=== PATIENT | male | born 1940 | race Caucasian/White ===

== ENCOUNTER 2017-08-17 11:11 | Emergency (ER) | payer OTHER ==
[2017-08-17] MEDS ORDERED: TETANUS/DIPHTHERIA TOXOID [ADULT] 0.5 ML VIAL IM ONE (11:57)
[2017-08-17] MEDS ORDERED: OCTYL 2-CYANOACRYLATE 1 EACH TP ONE (12:38)
== END 2017-08-17 12:56 | disposition home or self-care (01) ==
LOC: EDH 11:11
DX: S51.811A Laceration without foreign body of right forearm, initial encounter (principal); S51.011A Laceration without foreign body of right elbow, initial encounter; Z85.828 Personal history of other malignant neoplasm of skin; W11.XXXA Fall on and from ladder, initial encounter; Y93.89 Activity, other specified; Y92.69 Other specified industrial and construction area as the place of occurrence of the external cause; Y99.8 Other external cause status
CPT/HCPCS: 12002; 90471; 90714

== ENCOUNTER 2017-08-21 11:50 | Emergency (ER) | payer OTHER ==
[2017-08-21 14:27] LABS: APPEARANCE,URINE Clear (CLEAR); BILIRUBIN,URINE Negative (NEGATIVE); COLOR,URINE Yellow (YELLOW); GLUCOSE, URINE (UA) Negative (NEGATIVE); KETONES,URINE Negative (NEGATIVE); LEUKOCYTE ESTERASE ,URINE Trace (NEGATIVE); NITRATE,URINE Negative (NEGATIVE); OCCULT BLOOD,URINE Negative (NEGATIVE); PROTEIN,URINE Negative (NEGATIVE)
[2017-08-21] MEDS ORDERED: LIDOCAINE 5% TOPICAL PATCH TP ONE (14:33)
[2017-08-21 14:47] LABS: BACTERIA,URINE Rare /HPF (None Seen); RBC,URINE 0-1 /HPF (0-1); SQUAMOUS EPITHELIAL CELL,UR Rare /HPF (0-2)
== END 2017-08-21 15:13 | disposition home or self-care (01) ==
LOC: EDH 11:50
DX: S39.012A Strain of muscle, fascia and tendon of lower back, initial encounter (principal); S09.8XXA Other specified injuries of head, initial encounter; Z98.890 Other specified postprocedural states; W11.XXXA Fall on and from ladder, initial encounter; Y93.89 Activity, other specified; Y92.89 Other specified places as the place of occurrence of the external cause; Y99.8 Other external cause status
CPT/HCPCS: 70450; 72131; 81001

== ENCOUNTER 2024-04-28 14:00 | Emergency (ER) | payer OTHER ==
[~2024-04-28] VITALS: Ht 180.3 cm; Wt 88.5 kg
[~2024-04-28 14:00] MED LIST: METO-296 PO; POLY17PO4 PO
--- NOTE | 2024-04-28 14:07 | ERN ---
ED Note History of Present Illness Stated Complaint: CP, BLURRED VISION X 4 DAYS Chief Complaint: Chest Pain Time Seen by MD: 14:03 Dictation: PATIENT IS A 83-YEAR-OLD MALE HERE WITH INTERMITTENT BLURRED VISION OFF AND ON SINCE SATURDAY. HE STATES IT HAS RESOLVED CURRENTLY HAS HAD AN INTERMITTENT MILD HEADACHE FRONTAL. ADDITIONALLY HE STATES HE HAS A INTERMITTENT CHEST PAIN NO PRESSURE NO REFERRED PAIN NO ARM PAIN NO JAW PAIN NO BACK PAIN. HE STATES HE NEVER WENT TO THE HOSPITAL DURING THIS LAST THREE DAYS NOR DID HE GO SEE HIS PRIMARY CARE DOCTOR TODAY. CURRENTLY STATES HE ONLY HAS ANTERIOR CHEST PAIN. NIH IS 0 SPEECH IS CLEAR Allergies: Coded Allergies: No Known Allergies (Unverified Allergy, Unknown, 07/25/23) Home Meds Active Scripts Metoclopramide HCl (Reglan) 10 Mg Tablet, 10 MG PO QID, #120 TAB 2 Refills Prov:KAYLIN SHEARER Sr., MD 07/25/23 Polyethylene Glycol 3350 (Miralax) 17 Gram Powd.pack, 17 GM PO DAILYBKFST, #30 PACKET 2 Refills Prov:KAYLIN SHEARER Sr., MD 07/25/23 Past Medical History Past Medical History: Asthma, Hypothyroid, Other Additional Past Medical Hx: PROSTATE Surgical History: Other Surgical History Other: BACK SURGERY RN Note Reviewed/Agreed w/PFSH: Yes Review of System Dictation CONSTITUTIONAL: NEGATIVE EXCEPT FOR HPI HEAD/FACE: NEGATIVE EXCEPT FOR HPI EENT: NEGATIVE EXCEPT FOR HPI RESPIRATORY: NEGATIVE EXCEPT FOR HPI CHEST PAIN GASTROINTESTINAL/ABDOMINAL: NEGATIVE EXCEPT FOR HPI GENITOURINARY: NEGATIVE EXCEPT FOR HPI MUSCULOSKELETAL: NEGATIVE EXCEPT FOR HPI INTEGUMENTARY: NEGATIVE EXCEPT FOR HPI NEUROLOGICAL/PSYCH: NEGATIVE EXCEPT FOR HPI INTERMITTENT VISION CHANGES/FRONTAL HEADACHE HEMATOLOGIC/LYMPHATIC: NEGATIVE EXCEPT FOR HPI ALL SYSTEMS NEGATIVE, EXCEPT NOTED ABOVE. 13 POINT REVIEW OF SYSTEMS ASSESSED AND ALL NEGATIVE EXCEPT FOR ABOVE. Initial Vital Sign VS Vital Signs Date Time Temp Pulse Resp B/P (MAP) Pulse Ox O2 Delivery O2 Flow Rate FiO2 04/28/24 14:01 98.1 66 16 141/72 100 Room Air 0 04/28/24 18:33 21 Physical Exam Dictation VITAL SIGNS REVIEWED GENERAL APPEARANCE: ALERT, ORIENTED X 3, NO ACUTE DISTRESS, WELL DEVELOPED, NOURISHED. HEAD AND FACE: NON-TRAUMATIC. EYES: PERRL, PINK CONJUNCTIVAS, EYELID NO TRAUMA, ANTERIOR CHAMBER WITH ARCUS SENILIS. EOMS INTACT EARS: PINNAS INTACT AND NO SIGNS OF TRAUMA OR ERYTHEMA EAR CANALS CLEAR AND NO DISCHARGE TM NO ERYTHEMA NOSE: NO DISCHARGE, NO BLEEDING. OROPHARYNX: MOUTH NORMAL, TONGUE PINK, PHARYNX CLEAR,NO ERYTHEMA, TONSILS NO EXUDATES, NO ABSCESSES NOTED, MUCOUS MEMBRANE MOIST NECK: SUPPLE, NON-TENDER, NO THYROMEGALY, NO MASSES, NO JVD, NO BRUITS BREAST:DEFERRED CHEST:NO TENDERNESS, NO CREPITUS, NO PARADOXICAL MOVEMENT, NO RETRACTIONS LUNGS:CLEAR, WELL-VENTILATED, SYMMETRIC, NO RALES, NO WHEEZING, NO RHONCHI, NO STRIDOR, GOOD BREATH SOUNDS BILATERALLY HEART: REGULAR RATE, REGULAR RHYTHM, NO MURMUR, NO GALLOPS VASCULAR: NO PERIPHERAL EDEMA, ABDOMEN: SOFT, POSITIVE BOWEL SOUNDS, NONDISTENDED, NO GUARDING, NONTENDER, NO REBOUND, NO MASSES NO HEPATOMEGALY, NO SPLENOMEGALY, NO STEVENS'S SIGN, NO HERNIAS. RECTAL: DEFERRED GENITAL: DEFERRED NEUROLOGICAL: NORMAL SPEECH, MOTOR FUNCTION INTACT, SENSORY FUNCTION INTACT NIH IS 0 MUSCULOSKELETAL: NECK NONTENDER, FULL RANGE OF MOTION, BACK NONTENDER, FULL RANGE OF MOTION, EXTREMITIES: NONTENDER, FULL RANGE OF MOTION SKIN: COLOR PINK, DRY, NO TURGOR, NO RASH, NO LACERATIONS, NO ABRASIONS, NO CONTUSIONS. LYMPHATIC: DEFERRED Results (Laboratory/Radiology) Laboratory/Radiology CT HEAD/BRAIN W/O CONTRAST HISTORY: Blurry vision COMPARISON: None TECHNIQUE: Multiple sequential axial images of the head were obtained from the base of the skull through vertex. Patient was not given contrast through intravenous route. FINDINGS: The ventricles and extraventricular CSF spaces are dilated consistent with cerebral atrophy. Nonspecific white matter changes seen. There is no midline shift, mass effect or herniation. No acute intracranial bleed is seen. Visualized portion of the paranasal sinuses are grossly within normal limits. IMPRESSION: 1. No acute intracranial bleed is seen. 2. Atrophy with white matter changes. CHEST 1VW HISTORY: Chest pain COMPARISON: None FINDINGS: A frontal projection of the chest was obtained. Prominent interstitial markings are seen with possible superimposed infiltrates. The heart is borderline enlarged. Degenerative changes are seen. No evidence of aortic calcification is seen. IMPRESSION: 1. Prominent interstitial markings are seen with possible superimposed infiltrates. Labs Reviewed?: Yes EKG Comment: EKG SINUS RHYTHM/HEART RATE 72/LEFT FASCICULAR BLOCK/AXIS NORMAL ED Course ED Course 755 PATIENT REMAINS NEUROLOGICALLY INTACT NO CHEST PAIN AT THIS TIME. DISCHARGED HOME HEART Score Response (Comments) Value EKG: Repolarization changes 1 Age: > 65yrs (+2) 2 Risk Factors: 1-2 risk factors (+1) 1 Initial Troponin: Normal limit (0) 0 Total 4 Medical Decision Making MDM MDM: DIFFERENTIAL DIAGNOSIS: ACS/AMI/CVA/VISION CHANGES/ATYPICAL CHEST PAIN/ELECT ROLYTE IMBALANCE/DEHYDRATION/PNEUMONIA/BRONCHITIS RATIONALE: TESTS CONSIDERED AND ORDERED SECONDARY TO SHARED DECISION MAKING IN CLUDE: EKG/LABS/RADIOLOGY PREVIOUS OUTSIDE RECORDS REVIEWED: OLD ER VISITS. REVIEWED RISK OF COMPLICATION AND/OR MORBIDITY OR MORTALITY OF PATIENT MANAGEMENT: NONE MEDICATIONS-PER MEDICATION RECONCILIATION NEED FOR HOSPITALIZATION: PATIENT DOES NOT MEET CRITERIA FOR HOSPITALIZATION. NO NEED FOR EMERGENCY MAJOR/MINOR SURGERY: NO THERE ARE NO SOCIAL CONCERNS WITH THIS PATIENT. PRESCRIPTION DRUG MANAGEMENT NONE PRESCRIPTIONS WILL INCLUDE SYMPTOMATIC CARE PATIENT'S PRIOR EXTERNAL MEDICAL RECORDS FROM OTHER ER VISITS WERE REVIEWED BY ME INDICATED. PRIOR TESTING AND RESULTS FROM PREVIOUS VISITS WERE REVIEWED. PRIOR TESTS WERE TAKEN INTO ACCOUNT WITH MEDICAL DECISION MAKING AND RESOURCE UTILIZATION, INDEPENDENT HISTORIAN/HISTORIANS WERE USED TO OBTAIN COMPLETE MEDICAL HISTORY. I INDEPENDENTLY INTERPRETED THE TEST THAT WERE PERFORMED, RESULTS WERE REVIEWED BY ME AND CONSIDERED FINDINGS ON RADIOLOGY IF ORDERED. MEDICAL MANAGEMENT AND EXAMINATION INTERPRETATION DISCUSSIONS WERE HAD BY ME WITH OTHER QUALIFIED HEALTHCARE PROFESSIONALS INDICATED FOR THE PATIENT'S CARE. DX & DISP Disposition: Discharge Departure Impression: Primary Impression: Atypical chest pain Additional Impressions: Dizziness, Mild dehydration Condition: Stable Additional Instructions: FOLLOW-UP WITH PRIMARY CARE PROVIDER IN 1 TO 2 DAYS. TAKE MEDICATIONS DIRECTED HERE IN THE EMERGENCY ROOM. OKAY TO CONTINUE HOME MEDICATIONS UNLESS OTHERWISE DISCUSSED DURING YOUR VISIT IN THE EMERGENCY ROOM TODAY. RETURN TO YOUR NEAREST EMERGENCY ROOM IF SYMPTOMS WORSEN OR IF THERE IS NO IMPROVEMENT. CALL 911 IF YOU NEED IMMEDIATE ASSISTANCE. TAKE TYLENOL OR MOTRIN [id number] NEEDED AND IF NO CONTRAINDICATIONS ARE PRESENT. INCREASE ORAL HYDRATION. A WOUND CULTURE OR URINE CULTURE WAS ORDERED HERE IN THE EMERGENCY ROOM DEPARTMENT PLEASE FOLLOW-UP WITH PRIMARY CARE PROVIDER AND ADVISE THEM TO GET REPEAT PORTS FROM OUR FACILITY. IF YOU HAD ANY DIEGO WRAP/SPLINTS THAT WERE APPLIED HERE, PLEASE DO NOT REMOVE THEM UNTIL YOU SEE YOUR PRIMARY CARE OR SPECIALTY. DIET AND ACTIVITY TOLERATED, FOLLOW UP WITH YOUR PRIMARY CARE DOCTOR IN 1-2 D AYS FOR MANAGEMENT. Referrals: SELF,REFERRAL (PCP) Time of Disposition: 17:59 I have reviewed the case, and I agree with, Diagnosis and Plan ATTESTATION BY PHYSICIAN I PERFORMED THE SUBSTANTIVE PORTION OF THE VISIT. I HAVE REVIEWED AND PERSONALLY MADE AND APPROVED THE MANAGEMENT PLAN THAT IS DOCUMENTED IN THE NOTE BY MYSELF FOR THE A PP. I ACKNOWLEDGED FOR RESPONSIBILITY FOR THE PATIENT'S MANAGEMENT PLAN. ALICJA MCNAMARA NP Apr 28, 2024 14:07 MERARI OHARA MD May 03, 2024 07:23
[2024-04-28] MEDS ORDERED: ASPIRIN 325MG TAB PO ONE (14:30)
--- NOTE | 2024-04-28 14:54 | HMCIMG ---
CT HEAD/BRAIN W/O CONTRAST HISTORY: Blurry vision COMPARISON: None TECHNIQUE: Multiple sequential axial images of the head were obtained from the base of the skull through vertex. Patient was not given contrast through intravenous route. FINDINGS: The ventricles and extraventricular CSF spaces are dilated consistent with cerebral atrophy. Nonspecific white matter changes seen. There is no midline shift, mass effect or herniation. No acute intracranial bleed is seen. Visualized portion of the paranasal sinuses are grossly within normal limits. IMPRESSION: 1. No acute intracranial bleed is seen. 2. Atrophy with white matter changes. CT was performed with one or more following dose reduction techniques: automated exposure control, adjustment of the mA and kv according to patient's size, or use of a iterative reconstruction technique.
--- NOTE | 2024-04-28 15:21 | HMCIMG ---
CHEST 1VW HISTORY: Chest pain COMPARISON: None FINDINGS: A frontal projection of the chest was obtained. Prominent interstitial markings are seen with possible superimposed infiltrates. The heart is borderline enlarged. Degenerative changes are seen. No evidence of aortic calcification is seen. IMPRESSION: 1. Prominent interstitial markings are seen with possible superimposed infiltrates.
--- NOTE | 2024-04-28 15:25 | EKG ---
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
[2024-04-28 17:17] LABS: BASOPHILS # (AUTO) 0.03 K/uL (0.00-0.20); BASOPHILS % (AUTO) 0.6 % (0.0-5.0); EOSINOPHILS # (AUTO) 0.07 K/uL (0.00-0.70); EOSINOPHILS % (AUTO) 1.4 % (0.0-8.0); HEMATOCRIT 49.2 % (42-54); IMMATURE GRANULOCYTE ABSOLUTE 0.03 K/uL (0-1); LYMPHOCYTES # (AUTO) 1.3 K/uL (1.0-4.8); LYMPHOCYTES % (AUTO) 25.6 % (21.0-51.0); MEAN CORPUSCULAR HEMOGLOBIN 30.5 pg (27.0-33.0); MEAN CORPUSCULAR HGB CONC 32.7 g/dL (32.0-36.0); MEAN CORPUSCULAR VOLUME 93.2 fL (79-99); MONOCYTES # (AUTO) 0.4 K/uL (0.1-1.0); NEUTROPHILS # (AUTO) 3.3 K/uL (1.8-7.7); NEUTROPHILS % (AUTO) 64.8 % (40.0-77.0); PLATELET COUNT (AUTO) 160 K/uL (130-400); RED BLOOD CELL COUNT(AUTO) 5.28 MIL/uL (4.50-6.20); RED CELL DISTRIBUTION WIDTH 13.8 % (11.0-15.5)
[2024-04-28 17:22] LABS: CREATININE 1.3 mg/dL (0.5-1.3); MAGNESIUM 2.3 mg/dL (1.80-2.40); POTASSIUM 4.5 mmol/L (3.5-5.1)
[2024-04-28 18:33] VITALS: BP 172/89; PULSE 60; RESP 16; TEMP 98.4; O2SAT 99
== END 2024-04-28 18:43 | disposition home or self-care (01) ==
LOC: EDH 14:00
DX: R07.89 Other chest pain (principal); R42 Dizziness and giddiness; E86.0 Dehydration; E03.9 Hypothyroidism, unspecified; J45.909 Unspecified asthma, uncomplicated; Z79.899 Other long term (current) drug therapy
CPT/HCPCS: 36415; 70450; 71045; 80048; 83735; 84484; 85025; 93005; 99285

== ENCOUNTER 2024-06-21 08:35 | Emergency (ER) | payer OTHER, MEDICARE ==
[~2024-06-21] VITALS: Ht 177.8 cm; Wt 88.5 kg
--- NOTE | 2024-06-21 09:16 | HMCIMG ---
CT ABDOMEN WITHOUT CONTRAST. CT PELVIS WITHOUT CONTRAST. INDICATION: Abdominal pain and hernia. History of cancer. Left nephrectomy. TECHNIQUE: Routine transaxial imaging using 5 mm slice thickness through the abdomen and pelvis without the administration of IV contrast. Thin slice reconstructions are also provided. Coronal and sagittal reformatted images acquired for interpretation. CT was performed with one or more of the following dose reduction techniques: Automated exposure control, adjustment of the mA and/or kV according to patient size, or use of iterative reconstruction technique. COMPARISON: None FINDINGS: ON NONCONTRAST IMAGING: ABDOMEN: Heart size is normal. Miniscule calcified granuloma at the left lung base. Left kidney is surgically absent. 4.3 cm simple right renal cyst at the mid to lower portion of the right kidney. A couple of additional tiny simple right renal cysts near the same level. 3 mm nonobstructing calculus at the lower pole of the right kidney. The liver is normal in size and smooth in contour without biliary duct dilation. The spleen is normal in size and attenuation. The gallbladder appears normal. The pancreas appears normal without pancreatic duct dilation. The adrenal glands appear normal. No significant abdominal, retrocrural or retroperitoneal adenopathy noted. No evidence for intra-abdominal free air or organized fluid collection. Mild calcific plaque is noted along the abdominal aortic and iliac vessel adam without aneurysmal dilation. PELVIS: No abnormal calcifications within the urinary bladder or distal ureters. No evidence for free air or organized pelvic fluid collection. No significant pelvic adenopathy detected. Several diverticula along the distal colon and moderate stool burden. Terminal ileum appears unremarkable. The appendix appears normal. Enlarged prostate gland with transverse dimension measuring up to 6.8 cm. Moderate thoracolumbar spondylosis includes shallow lumbar dextroscoliosis. IMPRESSION: 1. 3 mm nonobstructing right renal calculus. 2. Enlarged prostate gland. 3. Distal colonic diverticulosis and moderate stool burden. 4. Additional minor findings and pertinent negatives as reported.
[2024-06-21 09:20] LABS: BASOPHILS # (AUTO) 0.03 K/uL (0.00-0.20); BASOPHILS % (AUTO) 0.6 % (0.0-5.0); EOSINOPHILS # (AUTO) 0.08 K/uL (0.00-0.70); EOSINOPHILS % (AUTO) 1.7 % (0.0-8.0); HEMATOCRIT 49.1 % (42-54); IMMATURE GRANULOCYTE ABSOLUTE 0.06 K/uL (0-1); LYMPHOCYTES # (AUTO) 1.3 K/uL (1.0-4.8); LYMPHOCYTES % (AUTO) 27.9 % (21.0-51.0); MEAN CORPUSCULAR HEMOGLOBIN 30.7 pg (27.0-33.0); MEAN CORPUSCULAR HGB CONC 32.8 g/dL (32.0-36.0); MEAN CORPUSCULAR VOLUME 93.5 fL (79-99); MONOCYTES # (AUTO) 0.4 K/uL (0.1-1.0); MONOCYTES % (AUTO) 8.6 % (3.0-13.0); NEUTROPHILS # (AUTO) 2.8 K/uL (1.8-7.7); NEUTROPHILS % (AUTO) 59.9 % (40.0-77.0); PLATELET COUNT (AUTO) 145 K/uL (130-400); RED BLOOD CELL COUNT(AUTO) 5.25 MIL/uL (4.50-6.20); RED CELL DISTRIBUTION WIDTH 13.5 % (11.0-15.5); WHITE BLOOD COUNT (AUTO) 4.6 K/uL (4.8-10.8)
[2024-06-21 09:54] LABS: ALBUMIN 3.7 g/dL (3.5-5.0); BILIRUBIN,DIRECT 0.2 mg/dL (0.0-0.3); BILIRUBIN,TOTAL 0.8 mg/dL (0.2-1.0); CREATININE 1.2 mg/dL (0.5-1.3); POTASSIUM 4.6 mmol/L (3.5-5.1); TOTAL PROTEIN, SERUM 7.2 g/dL (6.0-8.3)
--- NOTE | 2024-06-21 09:58 | EKG ---
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
--- NOTE | 2024-06-21 10:35 | ERN ---
ED Note History of Present Illness Stated Complaint: ABDOMINAL PAIN Chief Complaint: Abdominal Pain Time Seen by MD: 08:41 Dictation: 84-year-old male presents to the ED for evaluation of worsening abdominal pain onset two weeks ago. Patient was seen at the [facility] and was told he had two hernias and was sent to the ED for further evaluation and CT scan. Patient reports constipation, but denies chest pain, shortness of breath or any other associated symptoms at this time. Allergies: Coded Allergies: No Known Allergies (Unverified Allergy, Unknown, 07/25/23) Home Meds Active Scripts Dicyclomine HCl (Bentyl) 20 Mg Tab, 1 TAB PO BID for irritable bowel symptoms for 10 Days, #20 TAB 0 Refills Prov:HANNY LAMAR MD 06/21/24 Metoclopramide HCl (Reglan) 10 Mg Tablet, 10 MG PO QID, #120 TAB 2 Refills Prov:KAYLIN SHEARER Sr., MD 07/25/23 Polyethylene Glycol 3350 (Miralax) 17 Gram Powd.pack, 17 GM PO DAILYBKFST, #30 PACKET 2 Refills Prov:KAYLIN SHEARER Sr., MD 07/25/23 Past Medical History Past Medical History: Asthma, Hypothyroid, Other Additional Past Medical Hx: PROSTATE, 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, BACK PAIN Surgical History: Other Surgical History Other: BACK SURGERY, THYROID, LT NEPHRECTOMY Review of System Dictation Constitutional: Negative for fever,chills, and weight loss Eyes: Negative for injury, pain,redness, and discharge ENT: Negative for injury,pain or swelling Cardiovascular: Negative for chest pain, palpitations, and edema Respiratory: Negative for shortness of breath, cough, and wheezing, Abdomen/GI: Positive for abdominal pain and constipation negative for nausea, vomiting, diarrhea Back: Negative for injury and pain : Negative for injury, bleeding and discharge MS/Extremity: Negative for injury and deformity Skin: Negative for rash, and discoloration Neuro: Negative for headache, weakness, numbness, tingling, and seizure Psych: Negative for suicide ideation, homicidal ideation, and hallucinations Initial Vital Sign VS Vital Signs Date Time Temp Pulse Resp B/P (MAP) Pulse Ox O2 Delivery O2 Flow Rate FiO2 06/21/24 08:36 98.1 70 16 110/67 99 Room Air* 0 21 Physical Exam Dictation General: awake, alert, patient looks uncomfortable Head/Face: Normocephalic, atraumatic Eyes: PERRL, EOMI, vision at baseline ENT: oral cavity clear, TMs clear, no signs of infection Neck: Trachea midline, supple, no nuchal rigidity Cardiovascular: RRR, normal S1/S2, No MRGs, no JVD Respiratory: CTAB, no respiratory distress, No rales or wheezes Abdomen: Soft, positive for left lower quadrant tenderness, non-distended, normal bowel sounds, no guarding or rebound. Skin: Warm, dry, normal turgor, no rash MS/Extremity: Pulses equal, no cyanosis, neurovascular intact, FROM Neuro: COAx4, GCS 15, strength 5/5, CN 2-12 intact, normal cerebellar exam, normal gait, Psych: Normal behavior, mood, and affect normal Results (Laboratory/Radiology) Laboratory/Radiology Laboratory Tests Test 06/21/24 09:09 White Blood Count 4.6 K/uL (4.8-10.8) L Red Blood Count 5.25 MIL/uL (4.50-6.20) Hemoglobin 16.1 g/dL (14.0-18.0) Hematocrit 49.1 % (42-54) Mean Corpuscular Volume 93.5 fL (79-99) Mean Corpuscular Hemoglobin 30.7 pg (27.0-33.0) Mean Corpuscular Hemoglobin Concent 32.8 g/dL (32.0-36.0) Red Cell Distribution Width 13.5 % (11.0-15.5) Platelet Count 145 K/uL (130-400) Mean Platelet Volume 10.6 fL (7.5-10.5) H Immature Granulocyte % (Auto) 1.3 % (0-1) H Neutrophils (%) (Auto) 59.9 % (40.0-77.0) Lymphocytes (%) (Auto) 27.9 % (21.0-51.0) Monocytes (%) (Auto) 8.6 % (3.0-13.0) Eosinophils (%) (Auto) 1.7 % (0.0-8.0) Basophils (%) (Auto) 0.6 % (0.0-5.0) Neutrophils # (Auto) 2.8 K/uL (1.8-7.7) Lymphocytes # (Auto) 1.3 K/uL (1.0-4.8) Monocytes # (Auto) 0.4 K/uL (0.1-1.0) Eosinophils # (Auto) 0.08 K/uL (0.00-0.70) Basophils # (Auto) 0.03 K/uL (0.00-0.20) Absolute Immature Granulocyte (auto 0.06 K/uL (0-1) Nucleated Red Blood Cells 0.0 % (0.0-0.19) Sodium Level 141 mmol/L (136-145) Potassium Level 4.6 mmol/L (3.5-5.1) Chloride Level 107 mmol/L (101-111) Carbon Dioxide Level 28 mmol/L (21-32) Blood Urea Nitrogen 13 mg/dL (7-18) Creatinine 1.2 mg/dL (0.5-1.3) Glomerular Filtration Rate Calc 59 mL/min (>90) Random Glucose 94 mg/dL (70-105) Total Calcium 9.5 mg/dL (8.5-10.1) Total Bilirubin 0.8 mg/dL (0.2-1.0) Direct Bilirubin 0.2 mg/dL (0.0-0.3) Aspartate Amino Transf (AST/SGOT) 13 U/L (10-37) Alanine Aminotransferase (ALT/SGPT) 19 U/L (12-78) Alkaline Phosphatase 95 U/L (50-136) Total Creatine Kinase 65 U/L (21-232) Troponin I High Sensitivity 5 ng/L (4-75) Total Protein 7.2 g/dL (6.0-8.3) Albumin 3.7 g/dL (3.5-5.0) Lipase 62 U/L (16-77) Labs Reviewed?: Yes EKG Comment: EKG 06/21/2024 time 9:51 a.m. ventricular rate 64, CT 2010, QRS D 107, QT 425. Sinus rhythm, incomplete RBBB and LAFB. Anteroseptal infarct. No STEMI CT Scan Comment: REASON: abdominal pain and hernia ORDERING PHYSICIAN: HANNY LAMAR MD PROCEDURE: ABD PELVWO - CT ABD/PEL WO CON RENAL/APPY CT ABDOMEN WITHOUT CONTRAST. CT PELVIS WITHOUT CONTRAST. INDICATION: Abdominal pain and hernia. History of cancer. Left nephrectomy. TECHNIQUE: Routine transaxial imaging using 5 mm slice thickness through the abdomen and pelvis without the administration of IV contrast. Thin slice reconstructions are also provided. Coronal and sagittal reformatted images acquired for interpretation. CT was performed with one or more of the following dose reduction techniques: Automated exposure control, adjustment of the mA and/or kV according to patient size, or use of iterative reconstruction technique. COMPARISON: None FINDINGS: ON NONCONTRAST IMAGING: ABDOMEN: Heart size is normal. Miniscule calcified granuloma at the left lung base. Left kidney is surgically absent. 4.3 cm simple right renal cyst at the mid to lower portion of the right kidney. A couple of additional tiny simple right renal cysts near the same level. 3 mm nonobstructing calculus at the lower pole of the right kidney. The liver is normal in size and smooth in contour without biliary duct dilation. The spleen is normal in size and attenuation. The gallbladder appears normal. The pancreas appears normal without pancreatic duct dilation. The adrenal glands appear normal. No significant abdominal, retrocrural or retroperitoneal adenopathy noted. No evidence for intra-abdominal free air or organized fluid collection. Mild calcific plaque is noted along the abdominal aortic and iliac vessel adam without aneurysmal dilation. PELVIS: No abnormal calcifications within the urinary bladder or distal ureters. No evidence for free air or organized pelvic fluid collection. No significant pelvic adenopathy detected. Several diverticula along the distal colon and moderate stool burden. Terminal ileum appears unremarkable. The appendix appears normal. Enlarged prostate gland with transverse dimension measuring up to 6.8 cm. Moderate thoracolumbar spondylosis includes shallow lumbar dextroscoliosis. IMPRESSION: 1. 3 mm nonobstructing right renal calculus. 2. Enlarged prostate gland. 3. Distal colonic diverticulosis and moderate stool burden. 4. Additional minor findings and pertinent negatives as reported. DICTATED BY: DES AGUILAR MD DATE: 06/21/24 0909 ED Course ED Course Orders Procedure Category Date Status Time 12 Lead Ekg Tracing- EKG 06/21/24 Complete Technical 08:41 Basic Metabolic Panel LAB 06/21/24 Complete 08:41 Cbc With Differential LAB 06/21/24 Complete 08:41 Hepatic Function Panel LAB 06/21/24 Complete 08:41 Creatine Kinase, Total LAB 06/21/24 Complete 08:41 Troponin I High LAB 06/21/24 Complete Sensitivity 08:41 Lipase LAB 06/21/24 Complete 08:41 Ct Abd/Pel Wo Con CT 06/21/24 Resulted Renal/Appy 08:41 Hydrocodone/Apap PHA 06/21/24 Complete 10/325 Tab (Tate 10) 10:30 Ondansetron Odt 4mg PHA 06/21/24 Complete Tab (Zofran 4mg Odt) 10:30 Current Medications Medications (Trade) Dose Ordered Sig/Noel Route PRN Reason Start Time Stop Time Status Last Admin Dose Admin Acetaminophen/ Hydrocodone Bitart (NORco 10) 1 tab ONCE ONCE PO 06/21/24 10:30 06/21/24 10:31 DC 06/21/24 10:46 Ondansetron HCl (zoFRAN 4MG ODT) 4 mg ONCE ONCE SL 06/21/24 10:30 06/21/24 10:31 DC 06/21/24 10:46 Vital Signs Date Time Temp Pulse Resp B/P (MAP) Pulse Ox O2 Delivery O2 Flow Rate FiO2 06/21/24 11:42 98.1 65 16 110/67 98 Room Air* 0 21 06/21/24 09:45 98.6 84 18 171/72 99 Room Air* 0 21 06/21/24 08:39 98.1 70 16 110/67 Room Air 06/21/24 08:36 98.1 70 16 110/67 99 Room Air* 0 21 Medical Decision Making MDM MDM: Differential diagnosis: Inguinal Hernia, abdominal pain Rationale: Tests considered and ordered secondary to shared decision making include: labs, ECG and radiology Risk of complication and/or morbidity or mortality of patient management: None Medications-Per medication reconciliation Need for hospitalization: Patient does not meet criteria for hospitalization. Need for emergency major/minor surgery: No There are no social concerns with this patient. Prescription drug management Prescriptions will include symptomatic care I independently interpreted the test that were performed, results were reviewed by me and considered findings on radiology if ordered. Medical management and examination interpretation discussions were had by me with other qualified healthcare professionals as indicated for the patient's care. DX & DISP Disposition: Discharge Departure Impression: Primary Impression: Inguinal hernia Additional Impression: Abdominal pain Condition: Stable Scripts Dicyclomine HCl (Bentyl) 20 Mg Tab 1 TAB PO BID for irritable bowel symptoms for 10 Days, #20 TAB 0 Refills Prov: HANNY LAMAR MD 06/21/24 Referrals: VÍCTOR MORELOS MD (PCP) ASHLEY LAI MD Time of Disposition: 11:42 HANNY LAMAR MD Jun 21, 2024 10:35
[2024-06-21] MEDS: ondanSETRON ODT 4MG TAB SL ONE (10:46)
[2024-06-21] MEDS: HYDROcodone/acetaMINOPHEN 10/325 MG TAB PO ONE (10:46)
[2024-06-21 11:42] VITALS: BP 110/67; PULSE 65; RESP 16; TEMP 98.1; O2SAT 98
[2024-06-21] MEDS ORDERED: DICY20TA2 PO (11:42)
== END 2024-06-21 11:54 | disposition home or self-care (01) ==
LOC: EDH 08:35
DX: K40.90 Unilateral inguinal hernia, without obstruction or gangrene, not specified as recurrent (principal); K57.30 Diverticulosis of large intestine without perforation or abscess without bleeding; N20.0 Calculus of kidney; N40.0 Benign prostatic hyperplasia without lower urinary tract symptoms; E03.9 Hypothyroidism, unspecified; J45.909 Unspecified asthma, uncomplicated; Z79.899 Other long term (current) drug therapy; Z90.5 Acquired absence of kidney; Z98.890 Other specified postprocedural states
CPT/HCPCS: 36415; 74176; 80048; 80076; 82550; 83690; 84484; 85025; 93005; 99284; 99285

== ENCOUNTER 2024-11-11 12:50 | Emergency (ER) | payer MEDICARE, OTHER ==
[~2024-11-11] VITALS: Ht 177.8 cm; Wt 89.8 kg
[~2024-11-11 12:50] MED LIST changes: +APIX5TAB PO; +FINA5TAB41 PO; +LUBI24CA40 PO; -METO-296 PO; -POLY17PO4 PO; +TAMS-55 PO; +levothyroxine PO; +mvi PO; +omeprazole PO
--- NOTE | 2024-11-11 13:08 | EKG ---
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1940 Requested By: ELY ARIAS Order Number: [id number] Reading MD: Janelle Coleman Measurements Intervals [place] Rate: 86 P: 54 RI: 194 QRS: -27 QRSD: 103 T: 60 QT: 384 QTc: 460 Interpretive Statements Sinus rhythm Incomplete RBBB and LAFB Anteroseptal infarct, age indeterminate Compared to ECG 08/13/2024 11:08:16 Left anterior fascicular block now present Incomplete right bundle-branch block now present Right bundle-branch block now present Myocardial infarct finding now present Electronically Signed On 11-12-2024 15:06:15 CDT by Janelle Coleman Please click the below link to view image of tracing.
[2024-11-11 13:32] LABS: BASOPHILS # (AUTO) 0.01 K/uL (0.00-0.20); BASOPHILS % (AUTO) 0.1 % (0.0-5.0); EOSINOPHILS # (AUTO) 0.02 K/uL (0.00-0.70); EOSINOPHILS % (AUTO) 0.2 % (0.0-8.0); HEMATOCRIT 47.1 % (42-54); IMMATURE GRANULOCYTE ABSOLUTE 0.04 K/uL (0-1); LYMPHOCYTES # (AUTO) 0.8 K/uL (1.0-4.8); LYMPHOCYTES % (AUTO) 8.5 % (21.0-51.0); MEAN CORPUSCULAR HEMOGLOBIN 31.1 pg (27.0-33.0); MEAN CORPUSCULAR HGB CONC 32.9 g/dL (32.0-36.0); MEAN CORPUSCULAR VOLUME 94.4 fL (79-99); MONOCYTES # (AUTO) 0.6 K/uL (0.1-1.0); MONOCYTES % (AUTO) 6.2 % (3.0-13.0); NEUTROPHILS # (AUTO) 8.1 K/uL (1.8-7.7); NEUTROPHILS % (AUTO) 84.6 % (40.0-77.0); PLATELET COUNT (AUTO) 154 K/uL (130-400); RED BLOOD CELL COUNT(AUTO) 4.99 MIL/uL (4.50-6.20); WHITE BLOOD COUNT (AUTO) 9.6 K/uL (4.8-10.8)
[2024-11-11 13:34] LABS: CREATININE 1.2 mg/dL (0.5-1.3); POTASSIUM 4.4 mmol/L (3.5-5.1)
[2024-11-11 13:37] LABS: ALBUMIN 3.9 g/dL (3.5-5.0); BILIRUBIN,DIRECT 0.2 mg/dL (0.0-0.3); BILIRUBIN,TOTAL 0.9 mg/dL (0.2-1.0); TOTAL PROTEIN, SERUM 7.3 g/dL (6.0-8.3)
[2024-11-11] MEDS: LACTATED RINGERS 1000ML 1,000 ML IV ONE (13:53)
--- NOTE | 2024-11-11 14:03 | HMCIMG ---
CT ABDOMEN/PELVIS W/O CONTRAST HISTORY: Obstruction versus constipation COMPARISON: 06/21/2024 TECHNIQUE: Multiple sequential axial images of the abdomen and pelvis were obtained from the dome of the diaphragm through symphysis pubis. Patient was not given contrast through intravenous route. Oral contrast was not given. FINDINGS: No pleural effusion is seen bilaterally. There is no evidence of parenchymal disease or pulmonary nodule of the visualized lower lungs. Degenerative changes of the thoracolumbar spine are present. The heart is not enlarged. The liver, spleen, adrenal glands and pancreas are unremarkable. Left kidney is not seen. There is right posterior renal cyst measuring 4.2 cm. There is diverticulosis. No evidence of renal stone is seen. Fecal material is seen in the colon. There are normal size retroperitoneal and mesenteric lymph nodes. No ascites is seen. Atherosclerotic changes are present. Pelvic sidewalls are symmetric bilaterally. Bladder is well distended without wall thickening. Prostate gland is enlarged measuring 6.7 x 5.6 cm. IMPRESSION: 1. Left kidney is not seen. No hydronephrosis seen on right kidney. There is right renal cyst measuring 4.2 cm. There is diverticulosis. Enlarged prostate. CT was performed with one or more following dose reduction techniques: automated exposure control, adjustment of the mA and kv according to patient's size, or use of a iterative reconstruction technique.
--- NOTE | 2024-11-11 14:45 | ERN ---
General Chief Complaint: Constipation Stated Complaint: ABDOMINAL PAIN Time Seen by MD: 12:51 History of Present Illness Initial Comments 84-year-old gentleman brought in by EMS from the [facility] for abdominal distention. Patient reports that for the last 10 days or so he has been feeling constipated. He has taken multiple enemas an oral laxatives, but he says that he has not had a good stool in about 10 days now. He feels bloated. He feels nauseous. He has had decreased oral intake. Reports that after an enema he is able to pass some liquid but is unable to have a good stool. Of note, few months ago he did have a colon resection for a polyp that may have been cancer. He denies any rectal bleeding. He denies any fevers or systemic illness. Allergies: Coded Allergies: No Known Allergies (Unverified Allergy, Unknown, 07/25/23) Home Meds Reported Medications Lubiprostone (Amitiza) 24 Mcg Capsule, 24 MCG PO BID, CAP 08/13/24 [omeprazole] No Conflict Check, PO AM 08/13/24 [mvi] No Conflict Check, 1 TAB PO DAILY 08/13/24 [levothyroxine] No Conflict Check, PO AM 08/13/24 Finasteride (Finasteride) 5 Mg Tablet, 5 MG PO AM, TAB 08/13/24 Apixaban (Eliquis) 5 Mg Tablet, 5 MG PO BID, TAB 08/13/24 Tamsulosin HCl (Flomax) 0.4 Mg Cap.er.24h, 0.4 MG PO AM, CAPSULE. 08/13/24 Past Medical History Past Medical History: Asthma, Cancer, Hypothyroid, Other Medical History Other: PROSTATE, 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, BACK PAIN Past Surgical History: Other Surgical History Other: BACK SURGERY, THYROID, LT NEPHRECTOMY, COLON RESECTION ROS Dictation CONSTITUTIONAL: No chills, no fever, no weakness, no diaphoresis, no malaise. HEAD/FACE: No signs of trauma. EENT: No eye pain, no blurred vision, no tearing, no double vision, no ear pain, no ear discharge, no nose pain, no nasal congestion, no throat pain, no throat swelling, no mouth pain. RESPIRATORY: No cough, no orthopnea, no SOB, no stridor, no wheezing. CARDIOVASCULAR: No chest pain, no edema, no palpitations, no syncope. GASTROINTESTINAL/ABDOMINAL: Constipation GENITOURINARY: No abnormal discharge, no dysuria, no frequent urination, no hematuria. No complaints of pain in the genitals. MUSCULOSKELETAL: No back pain, no gout, no joint pain, no joint swelling, no muscle pain, no muscle stiffness, no neck pain. INTEGUMENTARY: No change in color, no change in hair/nails, no dryness, no lesion, no lumps, no rash. NEUROLOGICAL/PSYCH: No anxiety, not depressed, no emotional problem, no headache, no numbness, no pre-existing deficit, no history of seizures, no tremors, no weakness. HEMATOLOGIC/LYMPHATIC: Not anemic, no history of blood clots, no apparent bleeding, no bruising, glands not swollen. All Systems Negative, Except as Noted. Physical Exam Physical Exam Dictation VITAL SIGNS: Reviewed. GENERAL APPEARANCE: Alert, oriented x3, no acute distress. HEAD AND FACE: Non-traumatic. EYES: PERRL, pink conjunctivas, eyelid no trauma, anterior chamber clear. EARS: Pinnas intact and no signs of trauma or erythema. Ear canals clear and no discharge. TMs no erythema. NOSE: No discharge, no bleeding. OROPHARYNX: Mouth normal, teeth no caries, tongue pink. Pharynx clear, no erythema. Tonsils no exudates, no abscesses noted. Mucous membrane moist. NECK: Supple, non-tender, no thyromegaly, no masses, no JVD, no bruits. BREAST: Deferred. CHEST: No tenderness, no crepitus, no paradoxical movement, no retractions. LUNGS: Clear, well-ventilated, symmetric, no rales, no wheezing, no rhonchi, no stridor, good breath sounds bilaterally. HEART: Regular rate, regular rhythm, no murmur, no gallops. VASCULAR: No peripheral edema. ABDOMEN: Soft, positive bowel sounds, nondistended, no guarding, nontender, no rebound, no masses no hepatomegaly, no splenomegaly, no Begum's sign, no hernias. RECTAL: Deferred. GENITAL: Deferred. NEUROLOGICAL: Normal speech, gross motor function intact, gross sensory function intact. MUSCULOSKELETAL: Neck nontender, full range of motion, back nontender, full range of motion. EXTREMITIES: Nontender, full range of motion. SKIN: Color pink, dry, no turgor, no rash, no lacerations, no abrasions, no contusions. LYMPHATICS: Deferred. Results Laboratory and Microbiology Lab and Micro Result Laboratory Tests Test 11/11/24 13:11 White Blood Count 9.6 K/uL (4.8-10.8) Red Blood Count 4.99 MIL/uL (4.50-6.20) Hemoglobin 15.5 g/dL (14.0-18.0) Hematocrit 47.1 % (42-54) Mean Corpuscular Volume 94.4 fL (79-99) Mean Corpuscular Hemoglobin 31.1 pg (27.0-33.0) Mean Corpuscular Hemoglobin Concent 32.9 g/dL (32.0-36.0) Red Cell Distribution Width 14.0 % (11.0-15.5) Platelet Count 154 K/uL (130-400) Mean Platelet Volume 10.4 fL (7.5-10.5) Immature Granulocyte % (Auto) 0.4 % (0-1) Neutrophils (%) (Auto) 84.6 % (40.0-77.0) H Lymphocytes (%) (Auto) 8.5 % (21.0-51.0) L Monocytes (%) (Auto) 6.2 % (3.0-13.0) Eosinophils (%) (Auto) 0.2 % (0.0-8.0) Basophils (%) (Auto) 0.1 % (0.0-5.0) Neutrophils # (Auto) 8.1 K/uL (1.8-7.7) H Lymphocytes # (Auto) 0.8 K/uL (1.0-4.8) L Monocytes # (Auto) 0.6 K/uL (0.1-1.0) Eosinophils # (Auto) 0.02 K/uL (0.00-0.70) Basophils # (Auto) 0.01 K/uL (0.00-0.20) Absolute Immature Granulocyte (auto 0.04 K/uL (0-1) Nucleated Red Blood Cells 0.0 % (0.0-0.19) Sodium Level 142 mmol/L (136-145) Potassium Level 4.4 mmol/L (3.5-5.1) Chloride Level 104 mmol/L (101-111) Carbon Dioxide Level 29 mmol/L (21-32) Blood Urea Nitrogen 12 mg/dL (7-18) Creatinine 1.2 mg/dL (0.5-1.3) Glomerular Filtration Rate Calc 59 mL/min (>90) Random Glucose 93 mg/dL (70-105) Total Calcium 9.0 mg/dL (8.5-10.1) Total Bilirubin 0.9 mg/dL (0.2-1.0) Direct Bilirubin 0.2 mg/dL (0.0-0.3) Aspartate Amino Transf (AST/SGOT) 22 U/L (10-37) Alanine Aminotransferase (ALT/SGPT) 22 U/L (12-78) Alkaline Phosphatase 91 U/L (50-136) Total Creatine Kinase 150 U/L (21-232) # Troponin I High Sensitivity 5 ng/L (4-75) Total Protein 7.3 g/dL (6.0-8.3) Albumin 3.9 g/dL (3.5-5.0) Lipase 42 U/L (16-77) MDM CC: Abdominal pain and distention, constipation sensation for 10 days or so now. Historian: Patient Comorbidities: Advanced age, recent colon resection due to polyp/cancer, WISAM, paroxysmal SVT, GERD, hypertension, primary small so carcinoma of lung, primary malignant neoplasm of the ureter Limitations by social determinants of health: None Differential diagnosis: Bowel obstruction, surgical pathology, constipation, ileus, other. Vital signs: Stable, remained stable in the ER Labs (independently ordered and interpreted by me): No leukocytosis, left shift 85% neutrophils no bands. Metabolic panel normal, liver enzymes normal, CK normal, lipase normal. CT of the abdomen and pelvis shows no left kidney, no hydronephrosis, diverticulosis without diverticulitis enlarged prostate. No significant abnormalities. No signs of bowel obstruction. Patient received IV fluids in the ER, dose of MiraLax. I had a long discussion with the family. I did offer them admission for GI consultation to ensure that he is able to stool, but the patient reports that he has been dealing with this for awhile now and prefers to go home. He has had swallow study, colonoscopies, multiple studies. He follows up with [facility] a specialist. At this point in time, we will discharge the patient with GoLYTELY, which she said has worked for him in the past. We will recommend GI follow up. Patient agrees with this plan. ED Course Orders Procedure Category Date Status Time Cbc With Differential LAB 11/11/24 In Process 12:56 Troponin I High LAB 11/11/24 Complete Sensitivity 12:56 Urinalysis Profile LAB 11/11/24 Logged 12:56 12 Lead Ekg Tracing- EKG 11/11/24 Complete Technical 12:56 Lactated Ringers PHA 11/11/24 Complete 1000ml (Lactated 13:00 Creatine Kinase, Total LAB 11/11/24 Complete 12:56 Ct Abdomen/Pelvis W/O CT 11/11/24 Resulted Contrast 12:56 Lipase LAB 11/11/24 Complete 12:56 Basic Metabolic Panel LAB 11/11/24 Complete 12:56 Hepatic Function Panel LAB 11/11/24 Complete 12:56 Polyethylene Glycol PHA 11/11/24 Complete 3350 (Miralax 3350 1 14:00 Peg 3350/Na PHA 11/11/24 Complete Sulf,Bicarb,Cl/Kcl 14:30 Current Medications Medications (Trade) Dose Ordered Sig/Noel Route PRN Reason Start Time Stop Time Status Last Admin Dose Admin Lactated Ringer's 1,000 ml @ 0 mls/hr ONCE ONCE IV 11/11/24 13:00 11/11/24 13:01 DC 11/11/24 13:53 Polyethylene Glycol (MIRalax 3350 17 GM POWD.PACK) 17 gm ONCE ONCE PO 11/11/24 14:00 11/11/24 14:07 DC Polyethylene Glycol/ Electrolytes (Golytely/Colyte Soln) 4,000 ml ONCE ONCE PO 11/11/24 14:30 11/11/24 14:31 DC Vital Signs Date Time Temp Pulse Resp B/P (MAP) Pulse Ox O2 Delivery O2 Flow Rate FiO2 11/11/24 13:35 97.9 84 11 150/83 98 Room Air* 0 21 11/11/24 12:54 85 18 134/83 99 0 DX & DISP Disposition: Discharge Departure Impression: Primary Impression: Constipation Condition: Stable Additional Instructions: There are no signs of bowel obstruction or major abnormalities on your workup here today. The CT scan of your abdomen and pelvis does not show any bowel obstruction. Your blood work is unremarkable. As we discussed, you can take the GoLYTELY that you have been provided. Be sure to drink plenty of liquids. Consider following up with GI specialist. Return to the emergency department as needed. Referrals: VÍCTOR MORELOS MD (PCP) ELY ARIAS DO Nov 11, 2024 14:45
[2024-11-11] MEDS: polyETHYLene GLYCol 3350 17 GM POWD.PACK PO ONE (15:09)
[2024-11-11] MEDS: PEG 3350/NA SULF,BICARB,CL/KCL 4000 ML SOLN PO ONE (15:10)
[2024-11-11 15:27] VITALS: BP 141/74; PULSE 88; RESP 15; TEMP 98; O2SAT 99
--- NOTE | 2024-11-11 15:28 | NUR ---
PATIENT WAS DC'D BY DR ARIAS TODAY, MANOJ Stover RN DC'D PATIENTS IV WITH CATH STILL INTACT AND APPLIED 2X2 GAUZE WITH [facility] HE PROVIDED PATIENTS LAB WORK AND RADIOLOGY REPORT, DR ARIAS ALSO GAVE PATIENT MIRALAX AND GOLYTLY TO TAKE HOME WITH THEM PATIENT AMBULATED OUT OF ED ACCOMPANIED BY , NO COMPLICATIONS
== END 2024-11-11 16:22 | disposition home or self-care (01) ==
LOC: EDH 12:50
DX: K59.00 Constipation, unspecified (principal); E03.9 Hypothyroidism, unspecified; J45.909 Unspecified asthma, uncomplicated; Z79.01 Long term (current) use of anticoagulants; Z85.118 Personal history of other malignant neoplasm of bronchus and lung; Z90.5 Acquired absence of kidney
CPT/HCPCS: 99284; 74176; 96360; 82550; 80076; 84484; 80048; 83690; 85025; 36415; 93005; J7120